=== PATIENT | female | born 1960 | race Asian ===

== ENCOUNTER → 2017-08-26 07:52 | Outpatient (CLI) | payer OTHER, SELFPAY ==
--- NOTE | 2017-08-26 | DI.MRI.S_ITS ---
BREAST MRI OF BOTH BREASTS : 08/26/2017 CLINICAL: DCIS. Comparison is made to exams dated: 07/21/2017 mammogram, 07/07/2017 mammogram, 05/15/2015 mammogram - [facility], and 08/08/2017 stereotactic biopsy - [facility]. Informed consent was obtained from the patient. Axial T1, T2, and pre and post contrast T1 images were obtained. Right breast background enhancement is minimal. Left breast background enhancement is minimal. There is non-masslike enhancement in the lower central left breast corresponding to the biopsy proven DCIS which measures 18 x 26 x 12 mm (AP x TR x CC). The post biopsy marker is at the superior lateral posterior margin of the enhancement. The area demonstrates progressive internal enhancement kinetics. In the remaining left breast and throughout the right breast there is no abnormal enhancement, masses, or areas of distortion. IMPRESSION: KNOWN BIOPSY PROVEN MALIGNANCY 1. Biopsy proven left breast DCIS is larger than suspected compared to extent of now removed calcifications. The post biopsy marker is at the posterior lateral superior margin of the DCIS. 2. No MRI evidence ofmalignancy in the remaining left or throughout the right breast. This exam was interpreted at Station ID: [id number]. Electronically Signed By: Scott Avelar M.D. cj/:08/26/2017 11:16:24 ACR BI-RADS Category 6: Known biopsy proven malignancy 3346F
== END ==
PROVIDERS: Family Provider Nurse Practitioner Primary Care; PCP Registered Nurse Diabetes Educator; Visit Provider Surgery
DX: D05.10 Intraductal carcinoma in situ of unspecified breast (principal)
CPT/HCPCS: A9579; C8908

== ENCOUNTER 2017-09-03 07:02 | Day surgery (SDC) | payer OTHER, SELFPAY ==
[2017-09-03] VITALS (9 sets, daily range): BP systolic 126–139; BP diastolic 72–87; PULSE 73–110; RESP 14–18; TEMP 36–36.3; O2SAT 96–100; BMI 24.4
--- NOTE | 2017-09-03 | PATH_ITS ---
[facility] Accession Number: [id number] . 01 Material submitted: . PART A: LEFT BREAST PART B: NO SITE DESIGNATED . 02 Diagnosis: A. Left Breast, Lumpectomy: Multiple foci of invasive ductal carcinoma. Please see CAP cancer summary below. . B. Skin Biopsy Site, Excision: Skin with dermal scar. No evidence of neoplasm. . CAP CANCER CASE SUMMARY: INVASIVE CARCINOMA OF BREAST . PROCEDURE: Excision. SPECIMEN LATERALITY: Left. TUMOR SITE: Not specified. TUMOR SIZE: Greatest dimension of largest invasive focus: 12 x 7 mm. . HISTOLOGIC TYPE: Invasive carcinoma of no special type (ductal, not otherwise specified). HISTOLOGIC GRADE: KANA HISTOLOGIC SCORE Glandular/Tubular differentiation: Score 3 Nuclear Pleomorphism: Score 2 Mitotic Rate: Score 1 Overall Grade: Grade 2 TUMOR FOCALITY: Multiple foci of invasive carcinoma. Number of foci: 2. Sizes of individual foci: 12 mm, 4.5 mm (please see comment). . DUCTAL CARCINOMA IN SITU: Present, positive for extensive intraductal component. Size (Extent) of DCIS: Estimated size of DCIS: At least 27 mm (see comment). Architectural patterns: Cribriform and solid. Nuclear grade: Grade 2-3 (Intermediate to high). Necrosis: Present, central. LOBULAR CARCINOMA IN SITU: No LCIS in specimen. . MARGINS: INVASIVE CARCINOMA MARGINS: Positive for invasive carcinoma. Posterior: Positive, 5 mm extent (larger invasive focus). Medial/Posterior-Medial: Positive, 4 mm extent (smaller invasive focus). Remaining margins are greater than 10 mm from invasive carcinoma. DCIS MARGINS: Positive for DCIS. Posterior: Positive, 5 mm extent (in association with larger invasive focus). Remaining margins are negative for DCIS (greater than 10 mm). . REGIONAL LYMPH NODES: No lymph nodes submitted or found. . TREATMENT EFFECT: No known presurgical therapy. . LYMPHOVASCULAR INVASION: Not identified. DERMAL LYMPHOVASCULAR INVASION: Not identified. . PATHOLOGIC STAGE CLASSIFICATION (AJCC 8th Edition, 2017) TNM Descriptors: m (multiple foci of invasive carcinoma). Primary Tumor: pT1c. Regional Lymph Nodes: pNX. . ADDITIONAL PATHOLOGIC FINDINGS: Biopsy site changes are present. . ANCILLARY STUDIES (larger invasive focus): Estrogen Receptor (ER) Status: Strongly positive, 100% of cells. Progesterone Receptor (PgR) Status: Weakly positive, 50% of cells. HER2 (4B5): Negative (score 1+). . Microcalcifications: Present in invasive carcinoma, DCIS, and in non-neoplastic tissue. [facility]/09/10/2017 . 02 Comment: The second focus of invasive ductal carcinoma is located medial/posterior to the biopsy site and is [place] Grade 1 of 3 (good tubule formation-1, intermediate nuclear grade-2, and low mitotic rate-1). The estimated extent of DCIS is based on involvement of nine sequential tissue slices, 3 mm each in thickness. Prognostic markers will be performed on the second focus of invasive carcinoma and the results reported as an addendum. . As part of routine director of quality control, slides from blocks A27 and A28 were reviewed by Dr. Bray who agrees with the diagnosis of carcinoma. Dr. Recnios called Dr. Melara's office on 09/10/2017. . 02 Electronically signed: . Aleida Recinos MD, Pathologist NPI- [id number] . 01 Gross description: . (A) Received in formalin, labeled 1. Left breast lumpectomy, S.S. superior, L.S. lateral, wire-anterior, is a piece of breast tissue with no overlying skin (1.9 cm AP, 6.3 cm SI, 5.2 cm ML) oriented with two black sutures (short-superior, long-lateral and the localization wire is anterior. The specimen is serially sectioned SI into 24 slices with the superior and inferior margins as slices #1 and #24, respectively. The breast tissue is diffusely densely fibrous and focally irregularly firm and gritty. No defined nodules, masses or lesions are identified. A silver-colored metal spring biopsy marker is identified within slice #15. Ink code: purple-anterior; yellow-posterior; black-superior; orange-inferior; green-medial; blue-lateral. Section code: (A1) superior resection margin, perpendicularly sectioned; (A2) slice #2; (A3) slice #3; (A4) slice #4; (A5) slice #5; (A6-A7) slice #6, bisected and submitted ML; (A8-A9) slice #7, bisected and submitted ML; A10-A11) slice #8, bisected and submitted ML; (A12-A13) slice #9, bisected and submitted ML; (A14-A15) slice #10, bisected and submitted ML; (A16-A17) slice #11, bisected and submitted ML; (A18-A19) slice #12, bisected and submitted ML; (A20-A21) slice #13, bisected and submitted ML; (A22-A23) slice #14, bisected and submitted ML; (A24-A25) slice #15, slice with biopsy marker, bisected and submitted ML; (A26, A27) slice #16, bisected and submitted ML; (A28, A29) slice #17, bisected and submitted ML; (A30-A31) slice #18, bisected and submitted ML; (A32-A33) slice #19, bisected and submitted ML; (A34) slice #20; (A35) slice #21; (A36) slice #22; (A37) slice #23; (A38) inferior resection margin, perpendicularly sectioned. Specimen entirely submitted. Note: Approximate total fixation time in formalin-54 hours 30 minutes, calculated using a collection date of 09/03/2017 with no collection time given. (B) Received in formalin, labeled 2. Biopsy site skin, is an unoriented ellipse of blake-wall smooth shiny skin with underlying tissue (1.1 x 0.9 x 0.5 cm). A puckered area is centrally located. No nodules, masses or lesions are grossly identified. The resection margin is inked black. The tips are submitted in cassette B1 and the remaining ellipse is bisected and entirely submitted in cassette B2. ([id number]) /MRV . 02 Microscopic: . Immunohistochemical stains were performed to characterize cells of interest. All control stains showed appropriate reactivity. . Results: Block A27: p63: Absent around cells of interest. Myosin: Absent around cells of interest. ER (SP1): Strongly positive, 100% of cells MN (1E2): Weakly positive, 50% of cells. Her2 (4B5): Negative (Score 1+). . Block A28: p63: Absent around cells of interest. Myosin: Absent around cells of interest. . Interpretation: The absence of myoepithelial markers is compatible with invasive carcinoma. . * This test was developed and its performance characteristics determined by [facility]. It has not been cleared or approved by the U.S. Food and Drug Administration. The FDA has determined that such clearance or approval is not necessary. This test is used for clinical purposes. It should not be regarded as investigational or for research. . 02 Pathologist provided ICD-10: C50.912 . 02 CPT . 355377, 184021, U84860, Z74953 Performed at: [facility] [address] [facility], [place], [place] [id number] MD Bobo Bourgeois MD Phone: [phone] Performed at: 02 [facility] [address] [place], [place] [id number] MD Jose F Freitas MD Phone: [phone]
[2017-09-03] MEDS: LACTATED RINGERS 1,000 ML 42 ML IV (09:26)
--- NOTE | 2017-09-03 09:27 | SUR.PREOP ---
pt back from radiology, family members at bedside.
--- NOTE | 2017-09-03 10:09 | PM.PREOP ---
Pre-operative Note Interval Note Pre-op Check: History & Physical Reviewed by Physician ASA Class (for procedural sedation): I
[2017-09-03] MEDS: CEFAZOLIN 2 GM/100 ML FROZ.PIGGY IV (10:20)
--- NOTE | 2017-09-03 10:39 | SUR.OPER ---
Supine on padded OR bed, head on pillow, arms secured on padded arm boards at <90 degrees abduction, legs uncrossed, safety belt at thigh, tape over blanket over lower legs.
[2017-09-03] MEDS: BUPIVACAINE 0.5% (PF) 30 ML VIAL INJ (10:56)
[2017-09-03] MEDS: LIDOCAINE 1% W/EPI INJ 20 ML INJ (10:57)
--- NOTE | 2017-09-03 11:11 | PM.OP.1 ---
Operative Date/Time/Diagnoses - Date of procedure: 09/03/17 Time of procedure: 11:11 Pre-op diagnosis: Biopsy-proven left breast DCIS Post-op diagnosis: same Procedure & Clinicians Procedure: Left breast lumpectomy after needle localization Same procedure as scheduled: Yes Indications: Biopsy-proven DCIS of the left breast Surgeon: Bianca Melara Click Yes if Unassisted: Yes Anesthesia Type: General (Ahsaei) and Local Operative Notes Findings: Wire, clip, and target lesion also noted within the specimen Closure Type: primary Specimen(s): other (Left breast lumpectomy specimen marked with a short stitch superior, long stitch lateral, and wire anterior) Implants & Drains: Small blue hemoclips placed to walter the cavity Estimated Blood Loss (mL): 10 Blood products transfused: none Procedure in detail: After obtaining informed consent, the patient was brought to the operating room and placed in the supine position on the operating table. Following successful induction of general endotracheal anesthesia, appropriate padding of all bony prominences, and placement of appropriate monitors, the left breast and axilla were prepped and draped in a standard surgical fashion. A timeout was held per SCOAP protocol. A curvilinear incision was created at the lateral edge of the nipple-areolar complex on the left side. This was carried down through the skin and subcutaneous tissue to enter the breast tissue below. Using traction and counter-traction, the mass and localizing wire carefully dissected free from the overlying skin and soft tissue, underlying muscle, and surrounding breast tissue. The mass was delivered into the field and marked appropriately. It was sent for specimen x-ray. The wound was checked for hemostasis and irrigated with water. The radiologist called back into the room noting that the specimen x-ray contained the wire clip and mass. The wound was checked once again for hemostasis. It was irrigated copiously with warm water and aspirated free of all fluid. The edges of the lumpectomy cavity were marked with small hemoclips. The wound was checked once again for hemostasis and then closed in 2 layers with Vicryl Monocryl suture. Dermabond was applied to the skin incisions. Fluffs and a breast binder were applied. The patient tolerated the procedure very well. She was allowed awaken from anesthesia and taken to the post-anesthesia care unit in good condition. Complications: none Condition: stable Disposition: PACU Plan for aftercare: 1. Discharge to home 2. Follow up with me in 2 weeks
[2017-09-03] MEDS: OXYCODONE/ACETAMINOPHEN 5/325 TABLET 1 TAB PO (11:50)
== END 2017-09-03 12:40 | disposition home or self-care (01) ==
PROVIDERS: Family Provider Nurse Practitioner Primary Care; PCP Registered Nurse Diabetes Educator; Visit Provider Surgery
PROC: (CPT 19301; principal; 2017-09-03 09:45)
DX: C50.912 Malignant neoplasm of unspecified site of left female breast (principal); Z17.0 Estrogen receptor positive status [ER+]
CPT/HCPCS: 19301; 19281; 76098; 88305; 88307; 88341; 88342; J0690; J1100; J2405; J2704; J3010

== ENCOUNTER → 2017-09-03 07:04 | Outpatient (CLI) | payer OTHER, SELFPAY ==
--- NOTE | 2017-09-03 | DI.MG.S_ITS ---
MAMMOGRAPHY GUIDED WIRE LOCALIZATION LEFT BREAST WITH POST MAMMOGRAPHIC IMAGIN09/03/2017 CLINICAL: Left breast wire localization. Correlation is made to exams dated: 08/08/2017 stereotactic biopsy - [facility], 07/21/2017 mammogram, and 07/07/2017 mammogram - [facility]. A wire localization using mammography guidance was performed for the marker clip located in the left breast at 4 o'clock middle depth. This was described on the previous mammography report. The skin was prepped in the usual manner. Local anesthetic was administered to the access site. The localization was approached from the lateral aspect. A J-hook wire was inserted adjacent to the marker through an introducer device under mammography guidance. Post placement mammographic imaging demonstrates the tip demarcates the boundaries adjacent to the marker. The tip is 5 cm from the skin and IMPRESSION: WIRE LOCALIZATION Wire localization for the marker clip in the left breast at 4 o'clock middle depth was successful. A wire localization is recommended. This exam was interpreted at Station ID: [id number]. Cody Denny M.D. huong/ariana:09/03/2017 10:16:28
--- NOTE | 2017-09-03 | DI.MG.S_ITS ---
SPECIMEN LEFT BREAST: 09/03/2017 CLINICAL: Breast specimen. Correlation is made to exams dated: 09/03/2017 localization - [facility], 08/08/2017 stereotactic biopsy - [facility], and 07/21/2017 mammogram - [facility]. A surgical specimen was imaged for the area of asymmetry located in the left breast at 5 o'clock anterior depth. This was described on the previous MRI report. IMPRESSION: SPECIMEN The imaged specimen includes a biopsy clip and the distal portion of the localization wire. This exam was interpreted at Station ID: [id number]. Cody Denny M.D. huong/ariana:09/03/2017 17:56:32
== END ==
PROVIDERS: Family Provider Nurse Practitioner Primary Care; PCP Registered Nurse Diabetes Educator; Visit Provider Surgery
DX: C50.512 Malignant neoplasm of lower-outer quadrant of left female breast (principal)
CPT/HCPCS: 19281; 76098

== ENCOUNTER 2017-09-22 07:13 | Day surgery (SDC) | payer OTHER, SELFPAY ==
[2017-09-17 08:59] VITALS: BMI 24.4
[2017-09-22] VITALS (7 sets, daily range): BP systolic 132–144; BP diastolic 80–90; PULSE 80–97; RESP 16; TEMP 36.4–37.1; O2SAT 95–100
--- NOTE | 2017-09-22 | DI.NM.S_ITS ---
PROCEDURE: NM SENTINEL NODE W IMAGING RADIOPHARMACEUTICAL: 0.5-1.0 mCi Millipore filtered Tc-99m sulfur colloid. INDICATIONS: LEFT BREAST CANCER [id number] TECHNIQUE: The area around the nipple was prepped and draped in a sterile fashion. Tc-99m sulfur colloid was injected intra-dermally in the outer edge of the areola in the left breast. Images were obtained subsequently. A body contour outline was obtained. FINDINGS: There is/are lymph node(s) in the ipsilateral axilla, which is marked on the skin and the images for referring physician. IMPRESSION: Administration of radiotracer into the left breast periareolar region for intra-operative sentinel lymph node localization. Dictated by: George Duarte M.D. on 09/22/2017 at 9:25 Approved by: George Duarte M.D. on 09/22/2017 at 9:26
--- NOTE | 2017-09-22 | PATH_ITS ---
[facility] Accession Number: [id number] . 01 Material submitted: . PART A: LEFT AXILLARY SENTINEL NODE PART B: LEFT BREAST POSTERIOR MARGIN . 02 Diagnosis: A. Left Axillary [place] Node, Excision: One sentinel node negative for metastatic carcinoma, confirmed by immunohistochemistry. Minimum pathologic stage: pN0(sn). . B. Left Breast, Posterior Margin, Reexcision: No invasive carcinoma identified. Focal residual ductal carcinoma in situ, intermediate grade. - DCIS is 5mm from new posterior margin. - DCIS is greater than 5mm from remaining margins. Skeletal Muscle: Skeletal muscle is present and not involved. Reactive changes consistent with prior procedure. Microcalcifications present in association with nonneoplastic breast tissue. [facility]/09/26/2017 . 02 Electronically signed: . Aleida Recinos MD, Pathologist NPI- [id number] . 01 Gross description: . (A) Received in formalin, labeled 1. Left axillary sentinel node, are two wall lymph nodes (each approximately 0.7 x 0.7 x 0.3 cm). Each are bisected and entirely submitted in cassette A1. (B) Received in formalin, labeled 2. Left breast posterior margin, short=sup, long=lat, double anterior, is a piece of breast tissue (4.5 cm AP, 4.2 cm SI, 5.2 cm ML) with no overlying skin. The specimen is oriented with three black sutures (short-superior, long-lateral, double-anterior). No localization wire is present. The specimen is serially sectioned ML into 21 slices with the medial and lateral resection margins as slices #1 and #21, respectively. The breast tissue is diffusely fibrous at the anterior margin. No nodules, masses or lesions are identified. No biopsy marker is identified. Ink code: purple-anterior; yellow-posterior; black-superior; orange-inferior; green-medial; blue-lateral. Section code: (B1) medial resection margin, perpendicularly sectioned; (B2) slice #2; (B3) slice #3; (B4) slice #4; (B5) slice #5; (B6) slice #6; (B7) slice #7; (B8) slice #8; (B9) slice #9; (B10) slice #10; (B11) slice #11; (B12) slice #12; (B13) slice #13; (B14) slice #14; (B15) slice #15; (B16) slice #16; (B17) slice #17; (B18) slice #18; (B19) slice #19; (B20) slice #20; (B21) lateral resection margin, perpendicularly sectioned. Note: Approximate total fixation time in formalin-54 hours 30 minutes calculated using a collection date of 09/22/2017 with no collection time given. ([id number]) /MRV . 02 Microscopic: . A. An immunohistochemical stain was performed to characterize the cells of interest. All control stains showed appropriate reactivity. . Result: Block A1: Cytokeratin BRIANA: Negative. . Interpretation: Negative for epithelial cells in the sentinel node biopsy. . B. Immunohistochemical stains were performed on multiple blocks to evaluate cells of interest. All control stains showed appropriate reactivity. . Results: Block B7: p63: Positive around the cells of interest. Myosin: Positive around the cells of interest. . Block B16: p63: Positive around the cells of interest. Myosin: Positive around the cells of interest. . Block B12: p63: Positive around the cells of interest. Myosin: Positive around the cells of interest. . Block B11: p63: Positive around the cells of interest. Myosin: Positive around the cells of interest. . Interpretation: Myoepithelial cell markers are positive around the cells of interest in blocks B7, B11, B12 and B16, consistent with benign ducts in a reactive background. There is no evidence of invasive carcinoma. . * This test was developed and its performance characteristics determined by [facility]. It has not been cleared or approved by the U.S. Food and Drug Administration. The FDA has determined that such clearance or approval is not necessary. This test is used for clinical purposes. It should not be regarded as investigational or for research. . 02 Pathologist provided ICD-10: C50.912 . 02 CPT . 999500, 832408, T94481, X73565 Performed at: 01 [facility] [address] [address], [place], [place] [id number] MD Bobo Bourgeois MD Phone: [phone] Performed at: 02 [facility] [address] [place] [id number] MD Jose F Freitas MD Phone: [phone]
[2017-09-22] MEDS: LACTATED RINGERS 1,000 ML 42 ML IV ×2 (09:20→10:55)
--- NOTE | 2017-09-22 09:26 | PM.PREOP ---
Pre-operative Note Interval Note Pre-op Check: History & Physical Reviewed by Physician H&P completed within 30 days and has changed as indicated here:: I spoke with Dr. Jose R Gaona per telephone. We will wait for results of Oncotype DX before placing port. Brandie may not need chemotherapy.
[2017-09-22] MEDS: CEFAZOLIN 2 GM/100 ML FROZ.PIGGY IV (09:28)
--- NOTE | 2017-09-22 09:53 | SUR.OPER ---
Supine on padded OR bed, head on pillow, arms secured on padded arm boards at <90 degrees abduction, legs uncrossed, safety belt at thigh, tape over blanket over lower legs.
[2017-09-22] MEDS: BUPIVACAINE 0.5% (PF) 30 ML VIAL 15 ML INJ (10:37)
[2017-09-22] MEDS: LIDOCAINE 1% W/EPI INJ 15 ML INJ (10:39)
--- NOTE | 2017-09-22 10:59 | PM.OP.1 ---
Operative Date/Time/Diagnoses - Date of procedure: 09/22/17 Time of procedure: 10:59 Pre-op diagnosis: Pathology proven left breast malignancy Post-op diagnosis: same Procedure & Clinicians Procedure: Left breast re-excision of posterior margin and sentinel node biopsy Same procedure as scheduled: Yes Indications: Patient with diagnosed left breast DCIS found to have invasive malignancy on final pathology of lumpectomy specimen Surgeon: Bianca Melara Click Yes if Unassisted: Yes Anesthesia Type: General (Dr. Marie) and Local Operative Notes Findings: 1. One non sentinel lymph node removed. 1 sec count of 11 in a background of 1 2. 1 sentinel node removed. 1 sec count of 113 and a background of 1. 10 sec count of 957. 3. Background count in the room is 0. Closure Type: primary Specimen(s): none sent (1. Left axillary non sentinel node, 2. Left axillary sentinel node, 3. Left breast posterior margin) Estimated Blood Loss (mL): 5 Procedure in detail: After obtaining informed consent, the patient was brought to the operating room and placed in the supine position on the operating table. Following successful induction of general endotracheal anesthesia, appropriate padding of all bony prominences, and placement of appropriate monitors, the left breast and axilla were prepped and draped in a standard surgical fashion. A timeout was held per SCOAP protocol. Following injection of mixture of local anesthetics into the axillary fold on the left side, an incision was created and carried down through the skin and subcutaneous tissue to enter the axillary fat pad below. The neoprobe was used to identify the sentinel node. This was done by identifying a tiny node in level I of the axillary packet. The node itself had a 1 second count of approximately 11in a background of less than 1. The node was carefully liberated from the remainder of the axillary packet being sure not to compromise any of the other lymphatic structures. All afferent and efferent lymphatics and vasculature were addressed with hemoclips prior to division. Due to the low count once liberated, this was considered a non sentinel node and so it was retained and submitted for pathology but we continued evaluation for the sentinel node. A 2nd node, hotter than the 1st, was identified in the anterior level 2 axillary packet. This had a 1 sec count of greater than 100 in a background of 1 and greater than 950 at 10 sec count The wound was checked for hemostasis and irrigated with warm water. It was closed in 2 layers with Vicryl and Monocryl suture. We continued with re-excision of the posterior margin on the left side. The existing periareolar incision on the left was reopened entering the lumpectomy cavity. A small amount of serous fluid was aspirated from lumpectomy cavity. The entirety of the medial and posterior margins were then removed by grasping the medial edge and creating a plane sharply. The entire posterior margin was lifted off of the pectoralis muscle including the pectoralis fascia. The specimen was delivered into the field and marked with a short stitch superior, long stitch lateral, and double stitch anterior. The wound was carefully checked for hemostasis and irrigated with warm water. Once we were satisfied that hemostasis had been obtained, the wound was closed in 2 layers with Vicryl and Monocryl suture. Dermabond was applied to the skin incisions. Fluffs and a breast binder were applied. All sponge, needle, and instrument counts were correct at the conclusion of the case. The patient tolerated the procedure very well. She was allowed awaken from anesthesia and taken to the post-anesthesia care unit in good condition. Complications: none Condition: stable Disposition: PACU Plan for aftercare: 1. Discharge to home 2. Follow up my office in 2 weeks
[2017-09-22] MEDS: MEPERIDINE 25 MG/ML SYRINGE IV (11:10)
--- NOTE | 2017-09-22 11:34 | SUR.PHASEI ---
PT WITH CHILLS AND SHAKES AT 110.. MEDICATED WITH 12.5 OF DEMEROL.. PHARMACY NOTIFIED OF DIFFERENT DOES.. WITHIN 5 MINUTES PATIENT RESPONDED THAT IT IS MUCH BETTER.. SHE DENIES ANY PAIN... SHE HAS MOSTLY SLEEPING SINC HER TIME HERRE, DESPITE WHAT IS IN SYSTEM
[2017-09-22] MEDS: OXYCODONE/ACETAMINOPHEN 5/325 TABLET 1 TAB PO (11:58)
== END 2017-09-22 12:30 | disposition home or self-care (01) ==
PROVIDERS: Family Provider Nurse Practitioner Primary Care; PCP Registered Nurse Diabetes Educator; Visit Provider Surgery
PROC: (CPT 19301; principal; 2017-09-22 09:00)
DX: C50.912 Malignant neoplasm of unspecified site of left female breast (principal)
CPT/HCPCS: 19301; 38500; 78195; 88305; 88307; 88341; 88342; A9541; J0690; J1100; J2175; J2250; J2405; J2704; J3010

== ENCOUNTER → 2019-02-08 12:29 | Outpatient (CLI) | payer OTHER, SELFPAY ==
--- NOTE | 2019-02-08 | DI.MG.S_ITS ---
UNILATERAL LEFT DIGITAL DIAGNOSTIC MAMMOGRAM 3D/2D POST LUMPECTOMY: 02/08/2019 CLINICAL: Left breast cancer. Patient returns for a 6 month follow up of the left breast. Comparison is made to exams dated: 07/09/2018 mammogram - [facility], 07/07/2017 mammogram - [facility], and 09/03/2017 localization - [facility]. The tissue of left breast is heterogeneously dense. This may lower the sensitivity of mammography. There is architectural distortion in the left breast central to the nipple middle depth. This is not significantly changed. There is a post-surgical scar associated with the architectural distortion. No other significant masses or calcifications are seen in the breast. IMPRESSION: The post surgical changes in the left breast appear stable and benign. There is no mammographic evidence of malignancy. Return to annual mammogram screening schedule in 6 months is recommended. Findings and recommendations were conveyed to the patient at time of exam. This exam was interpreted at Station ID: [id number]. NOTE: For mammograms, a report in lay terms will be sent to the patient. Approximately 15% of breast malignancies will not be visualized mammographically. In the management of a palpable breast mass, a negative mammogram must not discourage biopsy of a clinically suspicious lesion. Electronically Signed By: Aixa hutson/:02/08/2019 14:17:35 copy to: Fabian Gomez M.D., [facility], ph: [phone], fax: [phone] copy to: SOFYA KIMBROUGH copy to: DENAE PERSON letter sent: Normal Exam ACR BI-RADS Category 2: Benign Finding(s) 3342F
== END ==
PROVIDERS: PCP Registered Nurse Diabetes Educator; Visit Provider Surgery
DX: R92.8 Other abnormal and inconclusive findings on diagnostic imaging of breast (principal); C50.912 Malignant neoplasm of unspecified site of left female breast
CPT/HCPCS: 77065; G0279

== ENCOUNTER → 2019-10-05 09:45 | Outpatient (CLI) | payer OTHER, SELFPAY ==
--- NOTE | 2019-10-05 | DI.MG.S_ITS ---
BILATERAL DIGITAL SCREENING MAMMOGRAM 3D/2D WITH CAD POST LUMPECTOMY: 10/05/2019 CLINICAL: Routine screening. Personal history of left breast cancer. Family history of breast cancer. Comparison is made to exams dated: 02/08/2019 mammogram - [facility], 07/09/2018 mammogram - [facility], 07/21/2017 mammogram, 07/07/2017 mammogram, and 05/15/2015 mammogram - [facility]. The tissue of both breasts is heterogeneously dense. This may lower the sensitivity of mammography. Current study was also evaluated with a Computer Aided Detection (CAD) system. There is possible developing architectural distortion in the right breast middle depth superior region seen on the mediolateral oblique view only. Post-operative findings in the left breast. No other significant masses, calcifications, or other findings are seen in either breast. IMPRESSION: INCOMPLETE: NEEDS ADDITIONAL IMAGING EVALUATION The possible developing architectural distortion in the right breast is indeterminate. Additional views with possible ultrasound are recommended. This exam was interpreted at Station ID: [id number]. NOTE: For mammograms, a report in lay terms will be sent to the patient. Approximately 15% of breast malignancies will not be visualized mammographically. In the management of a palpable breast mass, a negative mammogram must not discourage biopsy of a clinically suspicious lesion. Electronically Signed By: Wilbert Jimenez M.D. slc/:10/05/2019 13:05:53 copy to: Pam Melara copy to: SOFYA KIMBROUGH copy to: DENAE PERSON letter sent: Additional Imaging Needed ACR BI-RADS Category 0: Incomplete [id number]
== END ==
PROVIDERS: PCP Registered Nurse Diabetes Educator; Referring Provider Registered Nurse Diabetes Educator; Visit Provider Registered Nurse Diabetes Educator
DX: Z12.31 Encounter for screening mammogram for malignant neoplasm of breast (principal); Z85.3 Personal history of malignant neoplasm of breast; Z80.3 Family history of malignant neoplasm of breast
CPT/HCPCS: 77063; 77067